=== PATIENT | female | born 1955 | race Caucasian/White ===

== ENCOUNTER → 2017-05-06 | Outpatient (CLI) | payer OTHER | LOC: FIMAGING 14:18 | PROVIDERS: ATTEND Internal Medicine | CPT/HCPCS: G0204 ==

== ENCOUNTER 2018-05-04 11:28 | Observation (INO) | payer OTHER ==
[2018-05-04 12:26] LABS: PLATELET COUNT 368 10^3/uL (150-400)
[2018-05-04] MEDS ORDERED: MAG HYDROX/AL HYDROX/SIMETH 30 ML UDCUP PO ONE (12:47)
[2018-05-04] MEDS ORDERED: LIDOCAINE 2% VISCOUS 15 ML UDCUP PO ONE (12:47)
--- NOTE | 2018-05-04 12:51 | EDPHY ---
H & P Time Seen by Provider: 05/04/18 12:06 HPI/ROS: Chief complaint. Chest pain HPI. Patient is a 63-year-old female presents emergency department with chest pain that began about 10:20 a.m.. She was going to the dentist and took 2 clindamycin pills at 10:00 a.m. On an empty stomach. About 20 min later she began to have chest pain that spread across her chest and to her back. She felt it was tight like a belt. No shortness of breath. She was sweating and belching. She has had no fever or cough. She had upper respiratory symptoms 2 weeks ago that her resolving. She tells me she had a nuclear stress test in 2016 and then heart scan both showing calcifications. No unusual leg pain or swelling. No similar symptoms previously. There were no exacerbating factors. She did not feel that the chest discomfort was worse with exertion or breathing or position. ROS 10 systems were reviewed and negative with the exception of the elements mentioned in the history of present illness Past Medical/Surgical History: Past medical history is significant for hypothyroid, hypertension, esophageal spasm, dyslipidemia Family history dad of an CO at 54 and mom of an CO at 62 Social History: , nonsmoker, no alcohol Smoking Status: Never smoked Physical Exam: General Appearance: Alert well-developed female mild distress vital signs are stable Eyes: Pupils equal and round no pallor or injection. ENT, Mouth: Mucous membranes are moist. Respiratory: There are no retractions, lungs are clear to auscultation. Cardiovascular: Regular rate and rhythm. Gastrointestinal: Abdomen is soft and nontender, no masses, bowel sounds normal. Neurological: Awake and alert, sensory and motor exams grossly normal. Skin: Warm and dry, no rashes. Musculoskeletal: Neck is supple nontender. Extremities symmetrical, full range of motion. Psychiatric: Patient is oriented X 3, there is no agitation. Constitutional: Initial Vital Signs Temperature (C) 36.8 C 05/04/18 11:41 Heart Rate 67 05/04/18 11:41 Respiratory Rate 16 05/04/18 11:41 Blood Pressure 173/68 H 05/04/18 11:41 O2 Sat (%) 94 05/04/18 11:41 O2 Delivery Mode Room Air Allergies/Adverse Reactions: No Known Allergies Allergy (Unverified 05/04/18 11:40) Home Medications: Medication Instructions Recorded ARMOUR THYROID 06/16/14 Bystolic 06/16/14 Hydrochlorothiazide 06/16/14 Acyclovir 05/04/18 Prilosec 05/04/18 Medical Decision Making - Diagnostics EKG Interpretation: EKG interpreted by me shows normal sinus rhythm normal interval and axis. QRS is normal there is no significant ST elevation or depression. Rate is 55 Imaging Results: Imaging Impressions Chest X-Ray 05/04/18 12:47 Impression: Clear lungs. Upper normal size heart. Chest x-ray interpreted by me is normal. Borderline LVH Procedures: IV normal saline, monitor. GI cocktail. ED Course/Re-evaluation: Some improvement with GI cocktail Re-evaluation at 1:40 p.m.. Patient continues to have tightness across her chest. She and I discussed EKG, chest x-ray, laboratory evaluation. We discussed treatment plan including recommendation for admission. She expresses understanding and agrees I consulted discussed case with Dr. Ghotra, hospitalist, who agrees to the admission Differential Diagnosis: Patient has risk factors for coronary artery disease and acute coronary syndrome and family history. She has had fast heart scan which shows a calcifications. This could also be GERD. - Data Points Laboratory Results: Laboratory Results 05/04/18 12:15 05/04/18 12:15 05/04/18 05/04/18 05/04/18 12:20 12:15 12:15 WBC RBC Hgb Hct MCV MCH MCHC RDW Plt Count MPV Neut % (Auto) Lymph % (Auto) [place] % (Auto) Eos % (Auto) Baso % (Auto) Nucleat RBC Rel Count Absolute Neuts (auto) Absolute Lymphs (auto) Absolute Monos (auto) Absolute Eos (auto) Absolute Basos (auto) Absolute Nucleated RBC Immature Gran % Immature Gran # Sodium 137 mEq/L mEq/L (135-145) Potassium 4.0 mEq/L mEq/L (3.3-5.0) Chloride 104 mEq/L mEq/L (97-110) Carbon Dioxide 23 mEq/l mEq/l (22-31) Anion Gap 10 mEq/L mEq/L (6-14) BUN 15 mg/dL mg/dL (7-23) Creatinine 0.7 mg/dL mg/dL (0.6-1.0) Estimated GFR > 60 Glucose 112 mg/dL H mg/dL (70-100) Calcium 9.1 mg/dL mg/dL (8.5-10.4) POC Troponin I 0.01 ng/mL ng/mL (0.00-0.08) Lipase Pending 05/04/18 12:15 WBC 9.26 10^3/uL 10^3/uL (3.80-9.50) RBC 5.05 10^6/uL 10^6/uL (4.18-5.33) Hgb 15.5 g/dL g/dL (12.6-16.3) Hct 44.1 % % (38.0-47.0) MCV 87.3 fL fL (81.5-99.8) MCH 30.7 pg pg (27.9-34.1) MCHC 35.1 g/dL g/dL (32.4-36.7) RDW 13.0 % % (11.5-15.2) Plt Count 368 10^3/uL 10^3/uL (150-400) MPV 9.3 fL fL (8.7-11.7) Neut % (Auto) 71.2 % % (39.3-74.2) Lymph % (Auto) 21.8 % % (15.0-45.0) [place] % (Auto) 4.8 % % (4.5-13.0) Eos % (Auto) 1.2 % % (0.6-7.6) Baso % (Auto) 0.6 % % (0.3-1.7) Nucleat RBC Rel Count 0.0 % % (0.0-0.2) Absolute Neuts (auto) 6.59 10^3/uL H 10^3/uL (1.70-6.50) Absolute Lymphs (auto) 2.02 10^3/uL 10^3/uL (1.00-3.00) Absolute Monos (auto) 0.44 10^3/uL 10^3/uL (0.30-0.80) Absolute Eos (auto) 0.11 10^3/uL 10^3/uL (0.03-0.40) Absolute Basos (auto) 0.06 10^3/uL 10^3/uL (0.02-0.10) Absolute Nucleated RBC 0.00 10^3/uL 10^3/uL (0-0.01) Immature Gran % 0.4 % % (0.0-1.1) Immature Gran # 0.04 10^3/uL 10^3/uL (0.00-0.10) Sodium Potassium Chloride Carbon Dioxide Anion Gap BUN Creatinine Estimated GFR Glucose Calcium POC Troponin I Lipase Medications Given: Discontinued Medications Al Hydroxide/Mg Hydroxide (Maalox Susp) 30 ml PO ONCE ONE Stop: 05/04/18 12:48 Last Admin: 05/04/18 12:53 Dose: 30 ml Lidocaine (Lidocaine 2% Viscous) 15 ml PO ONCE ONE Stop: 05/04/18 12:48 Last Admin: 05/04/18 12:53 Dose: 15 ml Point of Care Test Results: Chemistry 05/04/18 12:20 POC Troponin I 0.01 ng/mL ng/mL (0.00-0.08) Departure - Departure Disposition: [facility] Inpatient Acute Clinical Impression: Chest pain Qualifiers: Chest pain type: unspecified Qualified Code(s): R07.9 - Chest pain, unspecified Condition: Fair Referrals: Eun Dooley MD [Primary Care Provider] - As per Instructions
[2018-05-04] MEDS ORDERED: ASPIRIN 81 MG CHEWABLE TAB PO ONE (13:47)
--- NOTE | 2018-05-04 14:02 | CPEKG ---
Test Reason : OPEN Blood Pressure : / mmHG Vent. Rate : 055 BPM Atrial Rate : 054 BPM P-R Int : 150 ms QRS Dur : 079 ms QT Int : 407 ms P-R-T Axes : 049 019 055 degrees QTc Int : 390 ms Sinus rhythm Confirmed by Brenton Gibson ([id number]) on 05/04/2018 2:01:41 PM Referred By: Confirmed By:Brenton Gibson
[2018-05-04] MEDS ORDERED: NITROGLYCERIN 0.4 MG BTL SL PRN (14:54)
[2018-05-04] MEDS ORDERED: ACETAMINOPHEN 325 MG TAB PO PRN (14:54)
[2018-05-04] MEDS ORDERED: ACYCLOVIR 400 MG TAB PO PRN (14:58)
[2018-05-04] MEDS ORDERED: CLINDAMYCIN HCL 600 MG PO SCH (15:00)
--- NOTE | 2018-05-04 15:56 | ASMTCMCOM ---
CM Note CM Note Notes: Patient chart reviewed . Patient is a 64 year old female admitted via ED for chest pain, r/o ACS vs Gerd. Normally independent and is employed at [employer]. CM to follow for needs. Plan: Likely able to dc home independently when medically clear for discharge. Date Signed: 05/04/2018 03:55 PM Electronically Signed By:Mara Hogan RN
--- NOTE | 2018-05-04 18:27 | PDGENHP ---
History and Physical - Chief Complaint chest discomfort - History of Present Illness 63yo F with CAD by calcium score, premature family history of CAD, GERD, dysphagia presents after episode of chest discomfort this AM. Took her regular medications this morning in addition to an antibiotic for prophylaxis for upcoming dental appointment and developed what she thought was an esophageal spasm in addition to usual gerd symptoms. This was followed by midline chest pain that radiated around both sides to her back and was associated with diaphoresis. This has been rather persistent and somewhat pleuritic in nature. Not necessarily exertional or positional. No dyspnea. It has gradually improved but has not gone away completely. She hasn't had a sensation like this before. In the ED, she had a negative POC troponin and non-ischemic ECG. She is being admitted for further risk stratification. History Information - Allergies/Home Medication List Allergies/Adverse Reactions: rivaroxaban [From Xarelto] Allergy (Verified 05/04/18 14:39) Vomiting Home Medications: Hydrochlorothiazide [HCTZ (*)] 12.5 mg PO DAILY 06/16/14 [Last Taken 05/04/18] Nebivolol HCl [Bystolic 5 mg (*)] 5 mg PO DAILY 06/16/14 [Last Taken 05/04/18] Thyroid [Fidelity Thyroid 60 MG (*)] 60 mg PO DAILY@04 06/16/14 [Last Taken ] Acyclovir [Zovirax 400 mg (*)] 400 mg PO TID PRN 05/04/18 [Last Taken 05/04/18] Clindamycin HCl [Clindamycin] 600 mg PO AD 05/04/18 [Last Taken 05/04/18] Pantoprazole Sodium [Protonix 40mg (*)] 40 mg PO DAILY 05/04/18 [Last Taken ] I have personally reviewed and updated: family history, medical history, social history, surgical history - Past Medical History Additional medical history: CAD by calcium score, GERD, dysphagia, HTN, hypothyroidism, spinal stenosis - Surgical History Additional surgical history: L hip arthroplasty, EGD with esophageal dilation - Family History Additional family history: father had KS at age 52, mother had KS at age 64, brother with T2DM - Social History Smoking Status: Never smoked Alcohol Use: None Drug Use: None Additional social history: Lives in [place], works at [employer] Review of Systems Review of Systems: ROS: 10pt was reviewed & negative except for what was stated in HPI & below Physical Exam Physical Exam: Temp Pulse Resp BP Pulse Ox 36.7 C 59 L 18 141/74 H 94 05/04/18 15:54 05/04/18 15:54 05/04/18 15:54 05/04/18 15:54 05/04/18 15:54 Constitutional: no apparent distress, appears nourished, not in pain Eyes: PERRL, anicteric sclera, EOMI Ears, Nose, Mouth, Throat: moist mucous membranes, hearing normal, ears appear normal, no oral mucosal ulcers Cardiovascular: regular rate and rhythym, systolic murmur (subtle at right sternal border without radiation), pulses symmetric bilaterally, No JVD, No carotid bruit, No edema Respiratory: no respiratory distress, no rales or rhonchi, clear to auscultation Gastrointestinal: normoactive bowel sounds, soft, non-tender abdomen, no palpable masses Genitourinary: no bladder fullness, no bladder tenderness Skin: warm, normal color, no rashes or abrasions, no fluctuance, no induration, No mottled Musculoskeletal: full muscle strength, no muscle tenderness, normal joint ROM, no joint effusions Neurologic: AAOx3 Psychiatric: interacting appropriately, not anxious, not encephalopathic, thought process linear Lab Data & Imaging Review 05/04/18 12:15 05/04/18 12:15 WBC 9.26 10^3/uL (3.80-9.50) 05/04/18 12:15 RBC 5.05 10^6/uL (4.18-5.33) 05/04/18 12:15 Hgb 15.5 g/dL (12.6-16.3) 05/04/18 12:15 Hct 44.1 % (38.0-47.0) 05/04/18 12:15 MCV 87.3 fL (81.5-99.8) 05/04/18 12:15 MCH 30.7 pg (27.9-34.1) 05/04/18 12:15 MCHC 35.1 g/dL (32.4-36.7) 05/04/18 12:15 RDW 13.0 % (11.5-15.2) 05/04/18 12:15 Plt Count 368 10^3/uL (150-400) 05/04/18 12:15 MPV 9.3 fL (8.7-11.7) 05/04/18 12:15 Neut % (Auto) 71.2 % (39.3-74.2) 05/04/18 12:15 Lymph % (Auto) 21.8 % (15.0-45.0) 05/04/18 12:15 [place] % (Auto) 4.8 % (4.5-13.0) 05/04/18 12:15 Eos % (Auto) 1.2 % (0.6-7.6) 05/04/18 12:15 Baso % (Auto) 0.6 % (0.3-1.7) 05/04/18 12:15 Nucleat RBC Rel Count 0.0 % (0.0-0.2) 05/04/18 12:15 Absolute Neuts (auto) 6.59 10^3/uL (1.70-6.50) H 05/04/18 12:15 Absolute Lymphs (auto) 2.02 10^3/uL (1.00-3.00) 05/04/18 12:15 Absolute Monos (auto) 0.44 10^3/uL (0.30-0.80) 05/04/18 12:15 Absolute Eos (auto) 0.11 10^3/uL (0.03-0.40) 05/04/18 12:15 Absolute Basos (auto) 0.06 10^3/uL (0.02-0.10) 05/04/18 12:15 Absolute Nucleated RBC 0.00 10^3/uL (0-0.01) 05/04/18 12:15 Immature Gran % 0.4 % (0.0-1.1) 05/04/18 12:15 Immature Gran # 0.04 10^3/uL (0.00-0.10) 05/04/18 12:15 D-Dimer 0.91 ug/mLFEU (0.00-0.50) H 05/04/18 12:45 Sodium 137 mEq/L (135-145) 05/04/18 12:15 Potassium 4.0 mEq/L (3.3-5.0) 05/04/18 12:15 Chloride 104 mEq/L (97-110) 05/04/18 12:15 Carbon Dioxide 23 mEq/l (22-31) 05/04/18 12:15 Anion Gap 10 mEq/L (6-14) 05/04/18 12:15 BUN 15 mg/dL (7-23) 05/04/18 12:15 Creatinine 0.7 mg/dL (0.6-1.0) 05/04/18 12:15 Estimated GFR > 60 05/04/18 12:15 Glucose 112 mg/dL (70-100) H 05/04/18 12:15 Calcium 9.1 mg/dL (8.5-10.4) 05/04/18 12:15 POC Troponin I 0.01 ng/mL (0.00-0.08) 05/04/18 12:20 NT-Pro-B Natriuret Pep 142 pg/mL (0-125) H 05/04/18 12:45 Lipase 55 IU/L (23-300) 05/04/18 12:15 Visualized and Interpreted Chest x-ray results: Yes Chest X-Ray results: no infiltrate, normal Visualized and Interpreted EKG results: Yes EKG additional interpertation: ECG: sinus bradycardia, no AV block, no ischemic ST-T changes, no right heart strain Assessment & Plan Assessment: 63yo F with CAD by calcium score, premature family history of CAD, HTN, GERD, dysphagia presents after episode of chest discomfort. She is being admitted for further risk stratification. Plan: #Chest pain: Intermediate risk of new/worsened coronary disease although differential also includes esophageal dz (spasm vs gerd) vs msk etiology. Will trend serial trop/ecg per protocol, keep on telemetry, and I have ordered a pharmacologic stress with MPI for the morning if her trops remain negative. I will also order a d-dimer as she is low probability of PE. #CAD by calcium score: She is not on aspirin or statin. Reports intolerance to prava and simvastatin. Start aspirin in AM. #HTN: BP ok on admit. Continue home bystolic and hctz. #GERD: Continue PPI #Hypothyroid: Continue replacement Diet: cardiac VTE ppx: low risk, SCDs Code: full Dispo: Admit under observation for above evaluation.
[2018-05-05] MEDS ORDERED: THYROID 60 MG TAB PO SCH (04:00)
[2018-05-05] MEDS ORDERED: ASPIRIN 325 MG TAB PO SCH (09:00)
[2018-05-05] MEDS ORDERED: HYDROCHLOROTHIAZIDE 12.5 MG CAP PO SCH (09:00)
[2018-05-05] MEDS ORDERED: NEBIVOLOL HCL 5 MG TAB PO SCH (09:00)
[2018-05-05] MEDS ORDERED: PANTOPRAZOLE SODIUM 40 MG TAB PO SCH (09:00)
[2018-05-05] MEDS ORDERED: REGADENOSON 0.4 MG/5 ML SYR IVP ONE ×2 (11:54→12:24)
--- NOTE | 2018-05-05 14:22 | CPR ---
PROCEDURE: Lexiscan injection of Lexiscan MPI study. SUPERVISING REACH TRUCK OPERATOR: Chery Singh MD INDICATION FOR PROCEDURE: Chest pressure, known history of subclinical CAD based off cardiac calcium scoring, and unable to run on treadmill. PRE: After obtaining informed consent, ensuring patient's n.p.o. status of caffeine for greater than 12 hours, patient was placed on electrocardiogram. Initial EKG shows sinus bradycardia, ventricular rate of 46 BPM, normal axis, no significant ST or T-wave abnormalities. Patient reports no chest pa in, pressure or symptoms suggesting of ischemia. Initial blood pressure of 138/70. Saturating 94% o n room air. INJECTION: Patient was given Lexiscan slow IV push, followed by nuclear isotope. Within a minute of injection, patient's heart rate did increase up to 83 BPM, no significant EKG changes. She did repo rt some mild flushing sensation, shortness of breath, and mild chest pressure along the distal part o f her chest. Her blood pressure remained stable at 143/77. She was given caffeinated beverage, and within 4 minutes post injection, she reported symptoms subsided. Heart rate did decrease down to 78 beats per minute. Again, no EKG changes, except a single PVC noted. Final blood pressure was 131/83 , saturation 97%. At current time, she is asymptomatic. IMPRESSION: A 63-year-old female with subclinical coronary artery disease, admitted for chest pressu re, undergoing MPI study for evaluation of ischemia. Did report some mild chest pressure and shortne ss of breath with Lexiscan injection, but with no significant EKG changes. Symptoms did subside when caffeinated beverage was given. A single premature ventricular contractions noted after injection, no other malignant arrhythmias or pauses. Currently, patient is pain free, vital signs are stable. She will be taken down to Nuclear Medicine for post-stress imaging. /[id number]/MODL
[2018-05-05 15:31] VITALS: BP 179/86
--- NOTE | 2018-05-05 20:00 | PDDCSUM ---
Discharge Summary Discharge Summary: 63yo F with CAD by calcium score, premature family history of CAD, HTN, GERD, dysphagia presents after episode of chest discomfort. She is being admitted for further risk stratification. She has not had any chest pain overnight. no chest pain this morning. She is back to baseline. workup including serial trop, tele, and Lexiscan are negative for cardiac etiology no changes to her home meds were made she is to f/u with her PCP next week She is d/c w/o chest pain, hemodynamically stable. DDX: #Chest pain: Intermediate risk of new/worsened coronary disease although differential also includes esophageal dz (spasm vs gerd) vs msk etiology. #CAD by calcium score: She is on low dose aspirin. Reports intolerance to prava and simvastatin. #HTN: BP ok on admit. Continue home bystolic and hctz. #GERD: Continue PPI #Hypothyroid: Continue replacement Exam: NAD AAOX3 RRR CTA B S/NT/ND MEDS: SEE MED REC F/U: PER ABOVE TOTAL TIME SPENT ON D/C IS 40 MINS
--- NOTE | 2018-05-06 09:26 | CPEKG ---
Test Reason : OPEN Blood Pressure : / mmHG Vent. Rate : 053 BPM Atrial Rate : 052 BPM P-R Int : 154 ms QRS Dur : 076 ms QT Int : 444 ms P-R-T Axes : 058 035 055 degrees QTc Int : 417 ms Sinus rhythm Low voltage, precordial leads Confirmed by Saul Mejia ([id number]) on 05/06/2018 9:26:27 AM Referred By: Confirmed By:Saul Mejia
== END 2018-05-05 17:20 | disposition home or self-care (01) ==
LOC: INTOOBSV 13:48 → F2W 15:27
PROVIDERS: ADMIT Internal Medicine; ATTEND Family Medicine
DX: R07.9 Chest pain, unspecified (principal); I25.10 Atherosclerotic heart disease of native coronary artery without angina pectoris; K21.9 Gastro-esophageal reflux disease without esophagitis; R13.10 Dysphagia, unspecified; I10 Essential (primary) hypertension; E03.9 Hypothyroidism, unspecified; Z96.642 Presence of left artificial hip joint; Z82.49 Family history of ischemic heart disease and other diseases of the circulatory system
CPT/HCPCS: 71045; 78452; 93005; 93017; 99285; A9500; G0378; 84484-PO; J2785